=== PATIENT | male | born 1955 | race Caucasian/White ===

== ENCOUNTER 2019-11-09 13:16 | Emergency (ER) | payer MEDICAID, SELFPAY ==
[2019-11-09] VITALS (9 sets, daily range): BP systolic 108–158; BP diastolic 62–92; PULSE 85–104; RESP 16–24; TEMP 36.9–37.2; O2SAT 90–100; BMI 42.5
--- NOTE | 2019-11-09 13:25 | RAD_ITS ---
STUDY: X-RAY CHEST REASON FOR EXAM: Male, 64 years old. weakness TECHNIQUE: Single AP portable view of the chest. COMPARISON: None. FINDINGS: EKG leads overlie the chest Lungs are expanded with superimposed interstitial edema. No organized infiltrate or effusion. There is no demonstrated pleural abnormality. There is cardiomegaly. Normal mediastinum and rylan. Normal visualized pulmonary arteries. Normal visualized aortic arch and descending thoracic aorta. There are diffuse degenerative changes of the visualized thoracic spine. Normal visualized ribs, clavicles, and shoulders. There is no demonstrated abnormality of the visualized soft tissue structures of the upper abdomen. RAD/Chest 1 View (Portable) IMPRESSION: Interstitial edema, no superimposed infiltrate or effusion. Cardiomegaly Electronically Signed: Brian Leahy MD at 14:34 EDT , Service support ,
--- NOTE | 2019-11-09 13:26 | EKG12_ITS ---
Test Reason : WEAKNESS Blood Pressure : / mmHG Vent. Rate : 088 BPM Atrial Rate : 088 BPM P-R Int : 172 ms QRS Dur : 106 ms QT Int : 354 ms P-R-T Axes : 009 -17 003 degrees QTc Int : 428 ms Normal sinus rhythm Moderate voltage criteria for LVH, may be normal variant Borderline ECG Confirmed by CAREY REAGAN ([id number]), video editor ARUNA AGUILAR ([id number]) on 11/13/2019 11:49:35 AM Referred By: VALERIE Confirmed By:CAREY REAGAN
--- NOTE | 2019-11-09 13:28 | NURSING ---
NO OLD EKGS
--- NOTE | 2019-11-09 13:31 | ED.DCSUM_ITS ---
History of Present Illness Chief Complaint: Weakness Informant: Patient Narrative: Patient presents the emergency department with generalized weakness of a couple days duration that is substantially worse today.. 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 He had some preoperative testing yesterday that returned with a hemoglobin of 6.4. It was referred related to me by the [facility] that his hemoglobin on September 27 was 11.7 October 01 10.7 and 722 6.4. Patient denies any black or bloody stools. He notes that he has had some gross hematuria. He notes over the past couple days has become significantly more weak. He denies any orthopnea. He has not seen a doctor for some time until recently. He is a long-term smoker. In September he had a fecal occult test that was negative. He received his first dose of Lupron yesterday when he saw the urologist in [place]. the patient tells me that he went to see primary care and urology this week. Past Medical History - Allergies and Home Meds Allergies/Adverse Reactions: Allergies No Known Allergies Allergy (Verified 11/09/19 13:24) Primary Care Physician: NOT,DEFINED [Primary Care Provider] - Smoking Status: Never smoker Review of Systems General: Reports: Malaise. Denies: Chills, Fever, Sweats Eyes: Denies: Visual changes - bilaterally, Diplopia ENT: Denies: Rhinorrhea, Sore throat Cardiovascular: Denies: Chest pain, Palpitations Respiratory: Denies: Dyspnea, Cough, Dyspnea on exertion Gastrointestinal: Reports: Diarrhea. Denies: Abdominal pain, Nausea, Vomiting, Melena, Hematochezia Genitourinary: Reports: - - Indwelling Espinoza catheter. Denies: Dysuria, Hematuria, Frequency Musculoskeletal: Denies: Back pain, Extremity Pain Skin: Denies: Rash, Wounds Neurological: Denies: Headache, Weakness, Numbness Physical Exam Vital Signs/Narrative: Vital Signs Temp Pulse Resp BP Pulse Ox 11/09/19 13:18 98.5 F 85 18 119/67 93 Inital Vital Signs reviewed: Yes General: Well nourished, Well developed, Obese, No Acute Distress Head: Normocephalic, Atraumatic Eyes: Perrl, EOMI, Pale conjunctiva ENT: Moist mucous membranes, No rhinorrhea Neck: Supple, Nontender Cardiovascular: Regular rate, Regular rhythm, No murmurs Respiratory: No distress, CTA bilaterally, Chest nontender Abdomen: Soft, Nontender, Nondistended, Normal bowel sounds Rectal: - - Light brown liquid stool : - - Patient has indwelling Espinoza catheter. There is no gross hematuria noted. Back: Nontender, Normal Inspection Extremities: Nontender, Edema - Bilateral lower extremity edema Skin: Jaundice, Pallor Neurological: Alert, Oriented x3, Cranial nerves II-XII grossly intact, Normal Strength, Normal Sensation Psychological: Normal affect, Normal Mood Diagnostic/Tx/Re-eval Clinical Impression(s) from Imaging Studies Chest X-Ray 11/09/19 13:25 IMPRESSION: Interstitial edema, no superimposed infiltrate or effusion. Cardiomegaly Electronically Signed: Brian Leahy MD at 14:34 EDT , Service support , Abdomen/Pelvis CT 11/09/19 14:23 IMPRESSION: Enlarged prostate. Retroperitoneal lymphadenopathy. This is likely due to the patient''s known history of prostate cancer. Diffuse osseous metastasis. Moderate bilateral hydronephrosis. No urinary calculi. Thick-walled urinary bladder, likely due to cystitis. No bowel obstruction or inflammation. Constipation. Normal appendix. Small amount of ascites. Small right pleural effusion with overlying atelectasis. Electronically Signed: Addy Huynh, at 16:27 EDT Tel , Service support , Laboratory Last Values WBC 16.4 K/mm3 (4.4-11.0) H 11/09/19 13:27 RBC 1.96 M/mm3 (4.6-6.2) L 11/09/19 13:27 Hgb 6.1 g/dL (13.0-16.5) L 11/09/19 13:27 Hct 18.6 % (40-54) L 11/09/19 13:27 MCV 94.9 fL (80-94) H 11/09/19 13:27 MCH 31.1 pg (27.0-32.0) 11/09/19 13:27 MCHC 32.8 g/dL (32-36) 11/09/19 13:27 RDW Std Deviation 54.1 fl (35.1-43.9) H 11/09/19 13:27 RDW Coeff of Kennedy 15.9 % (11.6-14.6) H 11/09/19 13:27 Plt Count 258 K/mm3 (150-450) 11/09/19 13:27 MPV 8.7 fl (6.2-12.0) 11/09/19 13:27 Neut % (Auto) Not Reportable 11/09/19 13:27 Absolute Neuts (auto) 13.4 X10^3/uL (2.0-7.7) H 11/09/19 13:27 Absolute Lymphs (auto) 1.15 X10^3/uL (0.83-4.51) 11/09/19 13:27 Total Counted 100 (MANUAL DIFF) 11/09/19 13:27 Neutrophils % (Manual) 76 % (47-70) H 11/09/19 13:27 Band Neutrophils % 6 % (0-5) H 11/09/19 13:27 Lymphocytes % (Manual) 7 % (19-41) L 11/09/19 13:27 Monocytes % (Manual) 2 % (0-10) 11/09/19 13:27 Metamyelocytes % 4 % (0-1) H 11/09/19 13:27 Myelocytes % 4 (0-0) H 11/09/19 13:27 Promyelocytes % 1 (0-0) H 11/09/19 13:27 Diff Path Review August11/09/19 13:27 PT 14.3 SECONDS (11.7-14.9) 11/09/19 13:27 INR 1.2 11/09/19 13:27 APTT 41.6 Seconds (24.1-36.2) H 11/09/19 13:27 Sodium 127 mmol/L (136-145) L 11/09/19 13:27 Potassium 4.6 mmol/L (3.5-5.1) 11/09/19 13:27 Chloride 93 mmol/L (98-107) L 11/09/19 13:27 Carbon Dioxide 25.0 mmol/L (21.0-32.0) 11/09/19 13:27 Anion Gap 9 (5-15) 11/09/19 13:27 BUN 40 mg/dL (7-18) H 11/09/19 13:27 Creatinine 1.67 mg/dL (0.70-1.30) H 11/09/19 13:27 Estim Creat Clear Calc 44.37 ml/min 11/09/19 13:27 Est GFR (MDRD) Af Amer 54 mL/min (>60) L 11/09/19 13:27 Est GFR (MDRD) Non-Af 45 mL/min (>60) L 11/09/19 13:27 BUN/Creatinine Ratio 24.0 RATIO (10-20) H 11/09/19 13:27 Glucose 123 mg/dL (74-106) H 11/09/19 13:27 Calcium 8.6 mg/dL (8.5-10.1) 11/09/19 13:27 Total Bilirubin 0.20 mg/dL (0.20-1.00) 11/09/19 13:27 Direct Bilirubin 0.12 mg/dL (0.00-0.30) 11/09/19 13:27 AST 11 U/L (15-37) L 11/09/19 13:27 ALT 17 U/L (16-61) 11/09/19 13:27 Alkaline Phosphatase 351 U/L (45-117) H 11/09/19 13:27 Troponin I < 0.015 ng/mL (<0.045) 11/09/19 13:27 Total Protein 6.8 g/dL (6.4-8.2) 11/09/19 13:27 Albumin 2.1 g/dL (3.2-5.0) L 11/09/19 13:27 Globulin 4.7 g/dL (2.2-4.2) H 11/09/19 13:27 Lipase 105 U/L (73-393) 11/09/19 13:27 Urine Color Yellow (Yellow) 11/09/19 14:38 Urine Clarity Sl. Cloudy (Clear) 11/09/19 14:38 Urine pH 6.0 (5.0 - 8.0) 11/09/19 14:38 Ur Specific [place] 1.015 (1.002-1.030) 11/09/19 14:38 Urine Protein 100 mg/dl (Negative) H 11/09/19 14:38 Urine Glucose (UA) Normal mg/dl (Normal) 11/09/19 14:38 Urine Ketones Negative mg/dl (Negative) 11/09/19 14:38 Urine Occult Blood 250 /ul (Negative) H 11/09/19 14:38 Urine Nitrite Negative (Negative) 11/09/19 14:38 Urine Bilirubin Negative mg/dL (Negative) 11/09/19 14:38 Urine Urobilinogen Normal mg/dl (Normal) 11/09/19 14:38 Ur Leukocyte Esterase 500 /ul (Negative) H 11/09/19 14:38 Urine RBC 50-100 SEEN /hpf (0-5) 11/09/19 14:38 Urine WBC >100 SEEN /hpf (0-5) 11/09/19 14:38 Ur Squamous Epith Cells 0-5 SEEN /hpf (0-5) 11/09/19 14:38 Amorphous Sediment 1+ URATE 11/09/19 14:38 Urine Bacteria 1+ /hpf (None Seen) 11/09/19 14:38 Urine Mucus 0 SEEN /hpf (<or=2+) 11/09/19 14:38 Blood Type A POSITIVE 11/09/19 13:45 Antibody Screen NEGATIVE 11/09/19 13:45 - Medical Decision Making Some IV fluids and then Levaquin. Blood cultures urine cultures were ordered. As all of his care is received at [facility] transfer line there was contacted for acceptance. Sepsis re-evaluation was performed ED Disposition - Plan for ED Patient: Diagnosis: Catheter-associated urinary tract infection, Anemia requiring transfusions, Weakness Referrals: NOT,DEFINED [Primary Care Provider] -
[2019-11-09 13:33] LABS: Hematocrit 18.6 % (40-54); Hemoglobin 6.1 g/dL (13.0-16.5); Mean Corp Hgb Conc 32.8 g/dL (32-36); Mean Corpuscular Hgb 31.1 pg (27.0-32.0); Mean Corpuscular Volume 94.9 fL (80-94); Mean Platelet Vol. 8.7 fl (6.2-12.0); POSITIVE COUNT YES; POSITIVE MORPHOLOGY YES; Platelet Count 258 K/mm3 (150-450); RBC Distribution Width CV 15.9 % (11.6-14.6); RBC Distribution Width SD 54.1 fl (35.1-43.9); Red Blood Count 1.96 M/mm3 (4.6-6.2); White Blood Count 16.4 K/mm3 (4.4-11.0)
[2019-11-09 13:37] LABS: Differential Indicated MANUAL DIFF
[2019-11-09 13:45] LABS: International Normalized Ratio 1.2; Prothrombin Time (Protime)PT. 14.3 SECONDS (11.7-14.9)
[2019-11-09 13:46] LABS: Partial Thromboplast Time 41.6 Seconds (24.1-36.2)
[2019-11-09 13:53] LABS: AST(SGOT) 11 U/L (15-37); Alanine Aminotransfer ALT/SGPT 17 U/L (16-61); Albumin, Serum 2.1 g/dL (3.2-5.0); Alkaline Phosphatase 351 U/L (45-117); Anion Gap 9 (5-15); BUN 40 mg/dL (7-18); Bilirubin, Direct 0.12 mg/dL (0.00-0.30); Calcium,Total 8.6 mg/dL (8.5-10.1); Chloride 93 mmol/L (98-107); Creatinine, Serum 1.67 mg/dL (0.70-1.30); EST Glomerular Filtration Rate 45 mL/min (>60); Est Glom Filt Rate - Afr Amer 54 mL/min (>60); Estimated Creatinine Clearance 44.37 ml/min; Globulin 4.7 g/dL (2.2-4.2); Glucose 123 mg/dL (74-106); Lipase 105 U/L (73-393); Potassium 4.6 mmol/L (3.5-5.1); Protein, Total 6.8 g/dL (6.4-8.2); Sodium Level 127 mmol/L (136-145)
[2019-11-09 14:01] LABS: Lymphocyte 7 % (19-41); Metamyelocyte 4 % (0-1); Monocyte 2 % (0-10); Myelocyte 4 (0-0); Neutrophil-Band 6 % (0-5); Neutrophil-Segmented 76 % (47-70); Promyelocyte 1 (0-0); Total Cells Counted 100 (MANUAL DIFF)
[2019-11-09 14:19] LABS: Absolute Neutrophil Count 13.4 X10^3/uL (2.0-7.7)
[2019-11-09 14:20] LABS: Absolute Lymphocyte Count 1.15 X10^3/uL (0.83-4.51)
--- NOTE | 2019-11-09 14:23 | CT_ITS ---
STUDY: CT ABDOMEN AND PELVIS WITH CONTRAST REASON FOR EXAM: Male, 64 years old. Pain. History of metastatic prostate cancer. RADIATION DOSAGE (If Supplied By Facility): CTDIvol = ( 22.06 ) mGy, DLP = ( 1415.55 ) mGycm TECHNIQUE: Transaxial images were obtained from the dome of the diaphragm to the symphysis pubis with oral contrast. 100 ml of ISOVUE-300 contrast was administered. Sagittal and coronal images were reconstructed. Individualized dose optimization techniques were used for this CT. COMPARISON: None. FINDINGS: The study is limited by patient motion. There is a small right pleural effusion with overlying atelectasis. The visualized portions of the heart and pericardium are within normal limits. There are no calcified gallstones present. The liver is within normal limits. There are no suspicious hepatic lesions. The spleen is normal in size. The pancreas is within normal limits. The adrenal glands are within normal limits. There are no renal or ureteral stones. There is moderate bilateral hydronephrosis. There are no focal renal lesions. Normal visualized stomach. There is no bowel obstruction or inflammation. There is a large amount of stool in the colon, consistent with constipation. The appendix is visualized and appears normal. The aorta is normal in caliber. There is a small amount of ascites present. There is no free air or fluid collection. The urinary bladder is thick-walled. There is interval catheter placement. The prostate is enlarged. There are multiple enlarged retroperitoneal lymph nodes with the largest measuring 3.3 x 2.4 cm in the left external iliac region. There are multiple lytic and sclerotic osseous lesions, consistent with diffuse osseous metastasis. CT/Abdomen/Pelvis WITH Contrast IMPRESSION: Enlarged prostate. Retroperitoneal lymphadenopathy. This is likely due to the patient''s known history of prostate cancer. Diffuse osseous metastasis. Moderate bilateral hydronephrosis. No urinary calculi. Thick-walled urinary bladder, likely due to cystitis. No bowel obstruction or inflammation. Constipation. Normal appendix. Small amount of ascites. Small right pleural effusion with overlying atelectasis. Electronically Signed: Addy Huynh, at 16:27 EDT Tel , Service support ,
[2019-11-09 14:45] LABS: Mucous, Urine 0 SEEN /hpf (<or=2+)
[2019-11-09 14:52] LABS: Color, Urine Yellow (Yellow); Glucose, Dipstick Normal (Normal); Ketone-Dipstick Negative (Negative); Leukocyte Esterase-Dipstick 500 /ul (Negative); Nitrite-Dipstick Negative (Negative); Occult Blood-Urine 250 /ul (Negative); Protein-Dipstick 100 mg/dl (Negative); Specific Gravity, Urine 1.015 (1.002-1.030); Urine Bilirubin Dipstick Negative (Negative); Urine Clarity Sl. Cloudy (Clear); Urine Urobilinogen Normal (Normal)
[2019-11-09 15:10] LABS: Amorphous Sediment 1+ URATE; Bacteria 1+ /hpf (None Seen); Red Blood Cells-Urine 50-100 SEEN /hpf (0-5); Squamous Epithelial Cells - UA 0-5 SEEN /hpf (0-5); White Blood Cells >100 SEEN /hpf (0-5)
--- NOTE | 2019-11-09 16:12 | NURSING ---
TRANSFERRING TO [facility]
[2019-11-09] MEDS: 0.9% Normal Saline 1,000 ML 999 ML IV (16:40)
[2019-11-09] MEDS: levoFLOXacin IV 500 MG/100 ML BAG 100 MG IV (16:40)
[2019-11-09 16:56] LABS: Lactic Acid 0.8 mmol/L (0.4-1.9)
--- NOTE | 2019-11-09 17:54 | NURSING ---
[address] ROOM 208 BED 1 NURSE TO NURSE [phone]
--- NOTE | 2019-11-09 17:55 | NURSING ---
CALLED PHYSICANS, ETA IS 2 HRS
[2019-11-09] MEDS: traMADol 50 MG Tablet PO (18:17)
[2019-11-09] MEDS: 0.9% Normal Saline 1,000 ML 150 ML IV (18:45)
[2019-11-09] MEDS: fentaNYL 100 MCG/2 ML Ampul 25 MCG IV (20:59)
[2019-11-10 12:10] LABS: Pathologist Review Reviewed
== END 2019-11-09 21:11 | disposition short-term general hospital (02) ==
PROVIDERS: Emergency Provider Emergency Medicine
DX: T83.511A Infection and inflammatory reaction due to indwelling urethral catheter, initial encounter (principal); Y84.6 Urinary catheterization as the cause of abnormal reaction of the patient, or of later complication, without mention of misadventure at the time of the procedure; Y92.9 Unspecified place or not applicable; D64.9 Anemia, unspecified; R53.1 Weakness; N13.30 Unspecified hydronephrosis; N40.0 Benign prostatic hyperplasia without lower urinary tract symptoms; J90 Pleural effusion, not elsewhere classified; K59.00 Constipation, unspecified; C79.51 Secondary malignant neoplasm of bone; R60.0 Localized edema; E66.9 Obesity, unspecified; C61 Malignant neoplasm of prostate; R31.0 Gross hematuria
CPT/HCPCS: 36415; 71045; 74177; 80048; 80076; 81001; 82274; 83605; 83690; 84484; 85025; 85610; 85730; 86850; 86900; 86901; 87040; 87077; 87086; 87088; 87149; 87186; 93005; 96361; 96365; 96375; 99285; J7030; J7050; Q9967; A4216